=== PATIENT | female | born 1990 | race Caucasian/White ===

== ENCOUNTER 2022-01-05 14:36 | Outpatient (CLI) | payer OTHER ==
--- NOTE | 2022-01-05 14:40 | NUR ---
PT AMBULATORY TO UNIT C/O COUGH AND CONGESTION X3 WEEKS. CONGESTION AND CHILLS WORSENING X3 DAYS AGO FOLLOWING HUSBANDS RETURN FROM A MASS GATHERING CONVENTION. COVID SWABBED IN [facility] AND POSITIVE TODAY. [facility] RECOMMENDED EVALUATION OF BABY DUE TO FHR 187 ON DOPPLER IN CLINIC. PT DENIES CONTRACTIONS OR LEAKING OF FLUID AND REPORTS POSITIVE MOVEMENT. PLACED IN [place]/CONTACT PRECAUTIONS PER COVID19 GUIDELINES. PLACED ON EFM/TOCO. NO CONTRACTIONS TRACING AT THIS TIME. CATEGORY 1 STRIP WITH ACCELERATIONS AND NO DECELERATIONS NOTED. FHR BASELINE 155. WILL NOTIFY PROVIDER OF PT'S ARRIVAL. SEE PHYS NOTIFICATION.
[2022-01-05] MEDS ORDERED: SYNTHROID0.175 MG PO (15:00)
[2022-01-05] MEDS ORDERED: CALCITRIOL PO (15:00)
[2022-01-05] MEDS ORDERED: CELEXA40 MG PO (15:01)
[2022-01-05] MEDS ORDERED: OSCAL 500 TAB500 MG PO (15:01)
[2022-01-05] MEDS ORDERED: PRENATAL (15:01)
--- NOTE | 2022-01-05 15:02 | NUR ---
CALL FROM WAQAR VILLA AT [facility], PT'S COVID 19 SWAB IS POSITIVE AT THIS TIME.
[2022-01-05 15:18] VITALS: BP 114/57; PULSE 127; TEMP 98.2
--- NOTE | 2022-01-05 15:30 | NUR ---
ALL DC PAPERWORK AND ORDERS REVIEWED AND UNDERSTOOD. PT TO BEGIN 162MG ASPIRIN DAILY AND MAY TAKE SUDAFED, MUCINEX AND TYLENOL TO HELP WITH COVID SYMPTOMS PER . PT ON DAY 3 OF SYMPTOMS AT THIS TIME AND POSITIVE SWAB NOTED TODAY 01/05/[address] [facility]. PT DENIES FURTHER QUESTIONS OR CONCERNS AT THIS TIME. WILL FOLLOW UP AT [facility] ON SATURDAY PREVIOUSLY SCHEDULED PER . PT AMBULATORY FROM UNIT IN STABLE CONDITION.
== END 2022-01-05 15:30 | disposition home or self-care (01) ==
LOC: LDRO 14:36 → LDR 14:40 → LDRO 15:30
DX: Z34.90 Encounter for supervision of normal pregnancy, unspecified, unspecified trimester (principal); Z3A.00 Weeks of gestation of pregnancy not specified
CPT/HCPCS: OP

== ENCOUNTER 2022-02-01 07:31 | Inpatient (IN) | payer OTHER ==
[~2022-02-01] VITALS: Ht 175.3 cm; Wt 114.1 kg
[~2022-02-01 07:31] MED LIST: CALCITRIOL PO; CELEXA40 MG PO; OSCAL 500 TAB500 MG PO; PRENATAL; SYNTHROID0.175 MG PO
[2022-02-06] VITALS (33 sets, daily range): BP systolic 101–156; BP diastolic 51–86; PULSE 83–112; TEMP 96.8–98.6
--- NOTE | 2022-02-06 06:45 | NUR ---
0645-G3.1 40.[address] Peters's ambulatory to LR 4 for induction of labor. Patient reports good movement and denies contractions or decreased movement. Assisted to gown and placed on EFM. VSS. Reviewed consents and assment. IV to left forearm. Blood collected and sent to lab per orders. 0737-pitocin started per orders. 0831-Dr. Peters on unit, SVE by . -2. AROm clear fluid.
[2022-02-06 07:52] LABS: HEMOGLOBIN 12.5 g/dl (12.5-16.0); MEAN CELL VOLUME 87 fl (80.0-100.0); MEAN CORPUSCULAR HEMOGLOBIN 30 pg (27-31); MEAN CORPUSCULAR HGB CONC 35 g/dl (33.0-37.0); MEAN PLATELET VOLUME 11.4 fl (7.4-10.4); PLATELET COUNT 175 K/mm3 (130-400); RED BLOOD COUNT 4.11 M/mm3 (4.10-5.30)
[2022-02-06 07:55] LABS: HEMATOCRIT 35.7 % (37.0-47.0)
--- NOTE | 2022-02-06 09:00 | NUR ---
0900-Patient off EFM to bathroom. Returns to bedside standing. [id number]-Wtzdgmparv trancing FHR due to maternal positioning for comfort standing at the bedside. JESSICA Rios notified of patients desire for epidural. [id number]-Zjloeghry intermittent tracing due to difficulty maintaining continous FHR tracing with frequent position changes at bedside. RN adjusting EFM frequently. 50-patient sitting upright for epidural placement. 55-Test dose administered by JESSICA Rios VSS patient tolerated procedure well. Reposioned WL. Smith continues to feel contraction pain and is moving back and forth for comfort. RN at bedside palpating contractions. 1010-Pit decreased to 6mu/min. Shahidtent continues to feel pain with contractions. JESSICA Rios to bedside dosing epidural. 1020-Dr. Peters in to see patient. SVE /0. Pit off per MD orders.
[2022-02-06 09:09] LABS: BAND 8 % (0-10); BASOPHIL 1 % (0-2); EOSINOPHIL 1 % (0-4); LYMPHOCYTE 23 % (20.0-51.0); METAMYELOCYTE 2 % (0-0); NEUTROPHILS 64 % (42.0-75.2)
[2022-02-06 09:11] LABS: PLATELET ESTIMATE NORMAL (NORMAL)
--- NOTE | 2022-02-06 11:40 | NUR ---
1140-SVE by /+2. Patient comfortable with epidural. Orders to resume pitocin at 2mu. 1150-Pit started at 2mu.
--- NOTE | 2022-02-06 13:08 | NUR ---
1308-Dr. Peters calls unit for update on SVE. 1310-SVE by Matias,LUCRECIA. Patient complete. Dr. Peters updated. 1323-This RN begins pushing with patient. Paitent moves vertex well. 1329-Dr. Peters on unit. Set up for delivery. 1334-Patient begins pushing with contraction. Moves vertex well. Spontaneous delivery of head followed by body. Viable male infant to mothers chest by MD. Cord clamped x2 and cut by FOB. Care of infant assumed by nursery RN LUCRECIA Menchaca. Apgars 8/9/9. 1336-Spontaneous delivery of intact placenta by MD. Fundal massage firm. Pitocin bolus per MD order and protocol. Lochia moderate. 2nd degree pernineal repair by MD. EBL 400ml. Lochia remains moderate, IM methergine ordered. 1441-IM methergine given per MD order, see EMAR. Fundal massage firm. Rosalia care provided. Updated on plan of care and safety.
--- NOTE | 2022-02-06 16:15 | NUR ---
1615-Patient ambulates with steady gait to bathroom. Easily voids 400ml clear yellow urine. Assisted with kaleb care. Ambulates to room 207 and oriented to room.
[2022-02-06] MEDS ORDERED: MOTRIN 800800 MG/TAB PO (19:15)
[2022-02-07 02:06] VITALS: BP 121/71; PULSE 81; TEMP 97.8
[2022-02-07 06:45] VITALS: BP 120/79; PULSE 98
--- NOTE | 2022-02-07 09:46 | NUR ---
Initial visit; Patient indisposed, Forest Ecologist spoke with and offered congratulations and God's blessings to the family for the of their son. Forest Ecologist thanked family for choosing [facility].
[2022-02-07 13:52] VITALS: BP 123/74; PULSE 107; TEMP 98
--- NOTE | 2022-02-07 18:11 | NUR ---
1545DISCHARGE INSTRUCTIONS REVIEWED WITH PATIENT. PATIENT VERBALIZED UNDERSTANDING. 1600ALL PERSONAL BELONGINGS GATHERED FROM PATIENT ROOM. PATIENT LEFT AMBULATORY AND IN NO APPARENT DISTRESS. PATIENT ACCOMPANIED BY SPOUSE AND THIS RN.
== END 2022-02-07 16:00 | disposition home or self-care (01) | DRG 807 ==
LOC: LDR 02-02 07:30 → OB 02-06 06:39 → LDR 02-06 07:18 → EDSTATUS 02-06 07:29 → LDR 02-06 09:20 → LDRO 02-06 09:29 → OB 02-06 16:15
PROVIDERS: ADMIT Obstetrics & Gynecology
PROC: 10E0XZZ Delivery of Products of Conception, External Approach (ICD-10-PCS; principal; 2022-02-06)
PROC: 0KQM0ZZ Repair Perineum Muscle, Open Approach (ICD-10-PCS; 2022-02-06)
PROC: 10907ZC Drainage of Amniotic Fluid, Therapeutic from Products of Conception, Via Natural or Artificial Opening (ICD-10-PCS; 2022-02-06)
PROC: 3E033VJ Introduction of Other Hormone into Peripheral Vein, Percutaneous Approach (ICD-10-PCS; 2022-02-06)
DX: O99.284 Endocrine, nutritional and metabolic diseases complicating childbirth (principal); Z37.0 Single live birth; O75.89 Other specified complications of labor and delivery; E89.0 Postprocedural hypothyroidism; O70.1 Second degree perineal laceration during delivery; O36.63X0 Maternal care for excessive fetal growth, third trimester, not applicable or unspecified; O99.214 Obesity complicating childbirth; O99.344 Other mental disorders complicating childbirth; F41.9 Anxiety disorder, unspecified; O69.81X0 Labor and delivery complicated by cord around neck, without compression, not applicable or unspecified; Z3A.40 40 weeks gestation of pregnancy; Z86.16 Personal history of COVID-19
CPT/HCPCS: J1200; J2210; J2590; J7120